=== PATIENT | female | born 1955 | race Caucasian/White ===

== ENCOUNTER 2017-05-23 08:17 | Day surgery (SDC) | payer BC ==
[~2017-05-23 08:17] MED LIST: Lactated Ringers 1,000 ML IV SCH; Sodium Chloride 0.9% 10 ML Syringe FLUSH PRN; Sodium Chloride 0.9% 2.5 ML Syringe FLUSH PRN
[2017-05-23] MEDS ORDERED: Propofol 200 MG/20 ML SDV ONE (09:29)
[2017-05-23] MEDS ORDERED: Lidocaine 2% 5 ML SDV ONE (09:31)
--- NOTE | 2017-05-23 09:33 | PCM.PREANE ---
Preanesthetic Assessment - Anesthesia/Transfusion/Family Hx Anesthesia History: No Prior Anesthesia Family History of Anesthesia Reaction: No Transfusion History: No Prior Transfusion(s) - Review of Systems General: No Symptoms Pulmonary: No Symptoms Cardiovascular: No Symptoms Gastrointestinal: No Symptoms Neurological: No Symptoms Other: Reports: None - Physical Assessment NPO Status Date: 05/22/17 NPO Status Time: 21:00 O2 Sat by Pulse Oximetry: 97 Respiratory Rate: 16 Vital Signs: Last Vital Signs Temp 36.5 C 05/23/17 08:33 Pulse 68 05/23/17 08:33 Resp 16 05/23/17 08:33 BP 171/73 H 05/23/17 08:33 Pulse Ox 97 05/23/17 08:33 Height: 1.65 m Weight: 107.048 kg ASA Class: 2 Mental Status: Alert & Oriented x3 Airway Class: Mallampati = 1 Dentition: Reports: Normal Dentition ROM/Head Extension: Full Lungs: Clear to Auscultation, Normal Respiratory Effort Cardiovascular: Regular Rate, Regular Rhythm - Allergies Allergies/Adverse Reactions: Allergies Allergy/AdvReac Type Severity Reaction Status Date / Time codeine Allergy Nausea and Verified 05/18/17 11:05 Vomiting - Anesthesia Plan Pre-Op Medication Ordered: None - Acknowledgements Anesthesia Type Planned: MAC Pt an Appropriate Candidate for the Planned Anesthesia: Yes Alternatives and Risks of Anesthesia Discussed w Pt/Guardian: Yes Pt/Guardian Understands and Agrees with Anesthesia Plan: Yes PreAnesthesia Questionnaire HEENT History: Reports: Other (See Below) Other HEENT History: wears glasses Cardiovascular History: Reports: High Cholesterol, Hypertension Genitourinary History: Reports: UTI, Recurrent [employer] 3RD SHIFT History: Reports: Musculoskeletal History: Reports: Arthritis Psychiatric History: Reports: Anxiety, Depression Endocrine/Metabolic History: Reports: Diabetes, Type II, Obesity/BMI 30+ - Past Surgical History Head Surgeries/Procedures: Reports: None GI Surgical History: Reports: Bariatric Procedure, Cholecystectomy Other GI Surgeries/Procedures: hx of laparoscopic gastric band placement Female Surgical History: Reports: Breast Biopsy, Cystectomy Other Female Surgeries/Procedures: hx laparotomy with ovarian cystectomy - SUBSTANCE USE Smoking Status *Q: Never Smoker Recreational Drug Use History: No - HOME MEDS Home Medications: Home Meds Insulin Aspart Protam & Aspart [Novolog Mix 70-30 Flexpen Syrn] 1 injection SUBCUT ASDIRECTED 05/18/17 [History] Losartan/Hydrochlorothiazide [Losartan-HCTZ 50-12.5 MG] 1 tab PO DAILY 05/18/17 [History] Rosuvastatin [Crestor] 10 mg PO BEDTIME 05/18/17 [History] Sertraline HCl 50 mg PO DAILY 05/18/17 [History] - CURRENT (IN HOUSE) MEDS Current Meds: Current Medications Lactated Ringer's (Ringers, Lactated) 1,000 mls @ 125 mls/hr IV ASDIRECTED MARYANN Last Admin: 05/23/17 08:35 Dose: 125 mls/hr Sodium Chloride (Saline Flush) 10 ml FLUSH ASDIRECTED PRN PRN Reason: Keep Vein Open Sodium Chloride (Saline Flush) 2.5 ml FLUSH ASDIRECTED PRN PRN Reason: Keep Vein Open Discontinued Medications Propofol (Diprivan 20 Ml) Confirm Administered Dose 400 mg .ROUTE .STK-MED ONE Stop: 05/23/17 09:30
--- NOTE | 2017-05-23 10:41 | PCM.OPNOTE ---
- General Post-Op/Procedure Note Date of Surgery/Procedure: 05/23/17 Operative Procedure(s): Colonoscopy Findings: Normal colon Pre Op Diagnosis: Screening colonoscopy Post-Op Diagnosis: same Anesthesia Technique: MAC Primary Surgeon: Rayne Carlson Condition: Good
[2017-05-23 11:13] VITALS: BP 127/60
--- NOTE | 2017-05-23 11:58 | PCM48HPAN ---
Post Anesthesia Note - EVALUATION WITHIN 48HRS OF ANESTHETIC Vital Signs in Normal Range: Yes Patient Participated in Evaluation: Yes Respiratory Function Stable: Yes Airway Patent: Yes Cardiovascular Function Stable: Yes Hydration Status Stable: Yes Pain Control Satisfactory: Yes Nausea and Vomiting Control Satisfactory: Yes Mental Status Recovered: Yes
--- NOTE | 2017-05-23 11:58 | PCM.POSTAN ---
POST ANESTHESIA ASSESSMENT - MENTAL STATUS Mental Status: Alert, Oriented - RESPIRATORY Respiratory Status: Respiratory Rate WNL, Airway Patent, O2 Saturation Stable - CARDIOVASCULAR CV Status: Pulse Rate WNL, Blood Pressure Stable - GASTROINTESTINAL GI Status: No Symptoms - POST OP HYDRATION Hydration Status: Adequate & Stable
--- NOTE | 2017-05-23 12:30 | OR ---
SURGEON: DARIUS VARELA MD DATE OF PROCEDURE: 05/23/2017 PREOPERATIVE DIAGNOSIS: Screening colonoscopy. POSTOPERATIVE DIAGNOSIS: Screening colonoscopy. PROCEDURE PERFORMED: Screening colonoscopy. ANESTHESIA: Monitored anesthesia care. INSTRUMENT USED: Olympus colonoscope. EXTENT OF EXAM: To the cecum. PREPARATION: Good. LIMITATIONS: None. INDICATIONS FOR EXAMINATION: The patient is a 62-year-old female, who presents for her first time screening colonoscopy. She has no family history of colon cancer or colon polyps. The patient and I discussed the procedure as well as expected perioperative course. We discussed the risks, including bleeding, infection, or damage to surrounding structures, including perforation. The patient verbalized understanding and wishes to proceed. PROCEDURE IN DETAIL: The patient was brought into the endoscopy suite and placed in a left lateral decubitus position. A time-out was completed verifying the patient's name, age, date of , allergies, and procedure to be performed. Monitored anesthesia care was induced and oxygen was provided via nasal cannula throughout the procedure. After adequate sedation was achieved, a digital rectal exam was performed. This examination was within normal limits. A well lubricated colonoscope was inserted into the rectum and advanced under direct visualization to the level of the cecum. The cecum was identified by both visual and anatomic landmarks. A photograph was taken of the cecal cap as well as with the scope retroflexed within the cecum. The scope was then straightened out and fully withdrawn while examining the color, texture, anatomy, and integrity of the mucosa from the cecum to the anal canal. Findings were consistent with normal colonic mucosa. The scope was brought into the rectum and retroflexed to allow visualization of the anal canal opening. This was normal and a photograph was taken. The scope was then straightened out and removed from the patient. The cecum to anus time was 10 minutes. The patient was taken to the PACU in stable condition. ENDOSCOPIC FINDINGS: Normal colonoscopy. RECOMMENDATIONS: Follow up in clinic in 10 years for a repeat screening colonoscopy. WILFRED MCMULLEN /[id number]
== END 2017-05-23 11:20 | disposition home or self-care (01) ==
LOC: MW.SDS 08:17
PROVIDERS: ATTEND Surgery
DX: Z12.11 Encounter for screening for malignant neoplasm of colon (principal); F41.9 Anxiety disorder, unspecified; E11.9 Type 2 diabetes mellitus without complications; I10 Essential (primary) hypertension; E78.00 Pure hypercholesterolemia, unspecified; M17.12 Unilateral primary osteoarthritis, left knee; F32.9 Major depressive disorder, single episode, unspecified; E66.9 Obesity, unspecified; Z88.5 Allergy status to narcotic agent; Z79.4 Long term (current) use of insulin; Z79.899 Other long term (current) drug therapy; Z98.84 Bariatric surgery status; Z98.890 Other specified postprocedural states; Z68.39 Body mass index [BMI] 39.0-39.9, adult; Z87.440 Personal history of urinary (tract) infections
CPT/HCPCS: 45378; J7120; J2704

== ENCOUNTER 2018-05-31 07:04 | Day surgery (SDC) | payer BC ==
[2018-05-31] MEDS ORDERED: Midazolam 1 MG/ML 2 ML SDV ONE (07:13)
[2018-05-31] MEDS ORDERED: fentaNYL 100 MCG/2 ML SDV ONE (07:13)
[2018-05-31] MEDS ORDERED: Propofol 200 MG/20 ML SDV ONE (07:13)
[2018-05-31] MEDS ORDERED: Lidocaine 2% 5 ML SDV ONE (07:13)
[2018-05-31] MEDS ORDERED: Dexamethasone/Tobramycin 0.1-0.3% Ophth Oint 3.5 GM Tube ONE (07:40)
[2018-05-31] MEDS ORDERED: Dexamethasone/Tobramycin 0.1-0.3% Ophth Susp 2.5 ML Bottle ONE (07:41)
[2018-05-31] MEDS ORDERED: Bupivacaine 0.25%/EPINEPHrine 1:200,000 10 ML SDV ONE (07:41)
[2018-05-31] MEDS ORDERED: Octyl 2-Cyanoacrylate 1 Tube ONE (07:41)
[2018-05-31] MEDS ORDERED: Tetracaine 0.5% Ophth Soln 15 ML Bottle ONE (07:41)
--- NOTE | 2018-05-31 07:51 | PCM.PREANE ---
Preanesthetic Assessment - Anesthesia/Transfusion/Family Hx Anesthesia History: No Prior Anesthesia Other Type of Anesthesia Reaction Comment: "hard time coming out of anesthesia after gastric banding" Family History of Anesthesia Reaction: No Transfusion History: No Prior Transfusion(s) Intubation History: Unknown - Review of Systems General: No Symptoms Pulmonary: No Symptoms Cardiovascular: No Symptoms Gastrointestinal: No Symptoms Neurological: No Symptoms Other: Reports: None - Physical Assessment Height: 1.65 m Weight: 107.955 kg ASA Class: 3 Mental Status: Alert & Oriented x3 Airway Class: Mallampati = 2 Dentition: Reports: Normal Dentition Thyro-Mental Finger Breadths: 3 Mouth Opening Finger Breadths: 3 ROM/Head Extension: Full Lungs: Clear to Auscultation, Normal Respiratory Effort Cardiovascular: Regular Rate, Regular Rhythm - Allergies Allergies/Adverse Reactions: Allergies Allergy/AdvReac Type Severity Reaction Status Date / Time codeine Allergy Nausea and Verified 05/28/18 08:37 Vomiting - Blood Blood Available: No - Anesthesia Plan Pre-Op Medication Ordered: None - Acknowledgements Anesthesia Type Planned: MAC Pt an Appropriate Candidate for the Planned Anesthesia: Yes Alternatives and Risks of Anesthesia Discussed w Pt/Guardian: Yes Pt/Guardian Understands and Agrees with Anesthesia Plan: Yes PreAnesthesia Questionnaire HEENT History: Reports: Other (See Below) Other HEENT History: wears glasses Cardiovascular History: Reports: High Cholesterol, Hypertension Gastrointestinal History: Reports: None Genitourinary History: Reports: UTI, Recurrent 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: Musculoskeletal History: Reports: Arthritis Psychiatric History: Reports: Anxiety Endocrine/Metabolic History: Reports: Diabetes, Type II, Obesity/BMI 30+ (BMI 39.6) - Past Surgical History Head Surgeries/Procedures: Reports: None GI Surgical History: Reports: Bariatric Procedure, Cholecystectomy, Colonoscopy Other GI Surgeries/Procedures: hx of laparoscopic gastric band placement Female Surgical History: Reports: Breast Biopsy, Cystectomy Other Female Surgeries/Procedures: hx laparotomy with ovarian cystectomy - SUBSTANCE USE Smoking Status *Q: Never Smoker Recreational Drug Use History: No - HOME MEDS Home Medications: Home Meds Insulin Aspart Protam & Aspart [Novolog Mix 70-30 Flexpen Syrn] 1 injection SUBCUT ASDIRECTED 05/18/17 [History] Rosuvastatin [Crestor] 10 mg PO DAILY 05/18/17 [History] Sertraline HCl 25 mg PO DAILY 05/18/17 [History] Losartan Potassium 50 mg PO DAILY 05/28/18 [History] - CURRENT (IN HOUSE) MEDS Current Meds: Current Medications Hydrocodone Bitart/Acetaminophen ([place] 325-5 Mg) 1 tab PO Q4H PRN PRN Reason: Pain Bupivacaine HCl/Epinephrine Bitart (Marcaine 0.25%/Epinephrine 1:200,000) 10 ml INJECT ONETIME ONE Stop: 05/31/18 08:01 Cefazolin Sodium/Dextrose 2 gm (/ Premix) 50 mls @ 100 mls/hr IV ONETIME ONE Stop: 05/31/18 08:29 Lactated Ringer's (Ringers, Lactated) 1,000 mls @ 125 mls/hr IV ASDIRECTED MARYANN Discontinued Medications Bupivacaine HCl/Epinephrine Bitart (Marcaine 0.25%/Epinephrine 1:200,000) Confirm Administered Dose 10 ml .ROUTE .STK-MED ONE Stop: 05/31/18 07:42 Fentanyl (Sublimaze) Confirm Administered Dose 100 mcg .ROUTE .STK-MED ONE Stop: 05/31/18 07:14 Lidocaine (Xylocaine-Mpf 2%) Confirm Administered Dose 5 ml .ROUTE .STK-MED ONE Stop: 05/31/18 07:14 Midazolam HCl (Versed 1 Mg/Ml) Confirm Administered Dose 2 mg .ROUTE .STK-MED ONE Stop: 05/31/18 07:14 Octyl Cyanoacrylate (Dermabond Advance) Confirm Administered Dose 1 applic .ROUTE .STK-MED ONE Stop: 05/31/18 07:42 Propofol (Diprivan 20 Ml) Confirm Administered Dose 200 mg .ROUTE .STK-MED ONE Stop: 05/31/18 07:14 Tetracaine (Tetracaine 0.5% Ophth Soln) Confirm Administered Dose 15 ml .ROUTE .STK-MED ONE Stop: 05/31/18 07:42 Tobramycin/Dexamethasone (Tobradex Ophth Oint) Confirm Administered Dose 3.5 gm .ROUTE .STK-MED ONE Stop: 05/31/18 07:41 Tobramycin/Dexamethasone (Tobradex Ophth Susp) Confirm Administered Dose 2.5 ml .ROUTE .STK-MED ONE Stop: 05/31/18 07:42
[2018-05-31] MEDS ORDERED: Lactated Ringers 1,000 ML IV SCH (08:00)
[2018-05-31] MEDS ORDERED: Bupivacaine 0.25%/EPINEPHrine 1:200,000 10 ML SDV INJECT ONE (08:00)
[2018-05-31] MEDS ORDERED: ceFAZolin 2 GM in Premix Bag 1 BAG IV ONE (08:00)
[2018-05-31] MEDS ORDERED: Acetaminophen/HYDROcodone 325-5 MG Tab PO PRN (08:00)
--- NOTE | 2018-05-31 09:49 | PCM48HPAN ---
Post Anesthesia Note - EVALUATION WITHIN 48HRS OF ANESTHETIC Vital Signs in Normal Range: Yes Patient Participated in Evaluation: Yes Respiratory Function Stable: Yes Airway Patent: Yes Cardiovascular Function Stable: Yes Hydration Status Stable: Yes Pain Control Satisfactory: Yes Nausea and Vomiting Control Satisfactory: Yes Mental Status Recovered: Yes Resp Rate: 16 - COMMENTS/OBSERVATIONS Free Text/Narrative:: No anesthesia problems. Patient skipped recovery room stage of postoperative care.
--- NOTE | 2018-05-31 10:40 | PCM.OPNOTE ---
- General Post-Op/Procedure Note Date of Surgery/Procedure: 05/31/18 Operative Procedure(s): bilateral upper lid blepharoplasties for excess skin Pre Op Diagnosis: dermatochalasis severe bilateral Post-Op Diagnosis: Same Anesthesia Technique: Local, MAC Primary Surgeon: Pilar Brandt Home Appliances Mechanic: Paulina Gipson Complications: None Condition: Good
[2018-05-31 13:13] VITALS: BP 143/61
--- NOTE | 2018-06-05 23:11 | OR ---
SURGEON: ARGELIA JAMES MD DATE OF PROCEDURE: 05/31/2018 PREOPERATIVE DIAGNOSIS: Bilateral upper lid dermatochalasis. POSTOPERATIVE DIAGNOSIS: Bilateral upper lid dermatochalasis. PROCEDURE: Bilateral upper lid blepharoplasties for excess skin. TRANSCRIPTION SPECIALIST: LUIS Duncan REASON FOR AND ROLE OF TRANSCRIPTION SPECIALIST: Retraction, prepping, draping, positioning and closure assistance. ANESTHESIA: Local MAC. INDICATIONS: Ms. Ramirez is a 63-year-old female, seen today in evaluation for bilateral upper lid dermatochalasis. Risks and benefits of upper lid blepharoplasties were discussed with her including, but not limited to, bleeding, infection, damage to underlying or overlying structures, possible need for future interventions, and possible scarring. PROCEDURE IN DETAIL: After informed consent was obtained and placed on the chart, the patient was brought to the operating theater and laid in supine position. After adequate local MAC anesthesia was obtained, the area was prepped and draped, and a time- out was completed to confirm side and site. After adequate markings, 0.25% Marcaine with epinephrine was injected in a field block and 1.3 cm of skin was marked for excision. Once adequately marked and anesthetized, the skin was excised using a #15 blade through the skin and Bovie electrocautery for meticulous hemostasis. Once adequately excised, the wounds on the upper eyelids were closed using a single deep 5-0 Monocryl stitch and a running 6-0 Prolene for the skin. The mirror procedure was completed on the opposite side and once both sides were completed, the 6-0 Prolenes were Steri- Stripped in place at the midline laterally. The patient tolerated this well. All counts and needles were correct at the end of the case. FOLLOWUP INSTRUCTIONS: The patient will see us in approximately 1 week; sooner if any problems, questions, or concerns. HEGGTHE / MODL /[id number]
== END 2018-05-31 10:50 | disposition home or self-care (01) ==
LOC: MW.SDS 07:04
PROVIDERS: ATTEND Plastic Surgery
DX: H02.834 Dermatochalasis of left upper eyelid (principal); H02.831 Dermatochalasis of right upper eyelid; I10 Essential (primary) hypertension; E11.9 Type 2 diabetes mellitus without complications; E66.9 Obesity, unspecified; Z68.39 Body mass index [BMI] 39.0-39.9, adult; E78.00 Pure hypercholesterolemia, unspecified; F41.9 Anxiety disorder, unspecified; Z79.4 Long term (current) use of insulin; Z79.899 Other long term (current) drug therapy; Z88.5 Allergy status to narcotic agent; Z88.8 Allergy status to other drugs, medicaments and biological substances
CPT/HCPCS: 15823; J2250; J2704; J3010; J3490; 00103; A9270-GY

== ENCOUNTER 2024-04-24 14:41 | Emergency (ER) | payer MEDICARE, OTHER ==
[2024-04-24 16:07] LABS: BASOPHILS ABSOLUTE AUTO 0.03 K/uL (0.00-0.20); BASOPHILS PERCENT AUTO 0.2 % (0.0-1.0); EOSINOPHILS ABSOLUTE AUTO 0.08 K/uL (0.00-0.45); EOSINOPHILS PERCENT AUTO 0.7 % (0.0-6.0); HEMATOCRIT 42.2 % (37.0-47.0); IMMATURE GRAN ABSOLUTE AUTO 0.04 K/uL (0.00-0.05); IMMATURE GRAN PERCENT AUTO 0.3 % (0.0-0.4); LYMPHOCYTES ABSOLUTE AUTO 2.15 K/uL (1.00-4.80); LYMPHOCYTES PERCENT AUTO 17.7 % (24.0-44.0); MEAN CORPUSCULAR HEMOGLOBIN 29.5 pg (28.0-32.0); MEAN CORPUSCULAR HGB CONC 35.5 g/dL (32.0-36.0); MEAN CORPUSCULAR VOLUME 83.1 fL (83.0-99.0); MEAN PLATELET VOLUME 9.1 fL (9.4-12.3); MONOCYTES PERCENT AUTO 4.1 % (0.0-8.0); NEUTROPHILS ABSOLUTE AUTO 9.32 K/uL (1.80-7.70); PLATELET COUNT,PLT 247 K/uL (150-400); RED BLOOD CELL COUNT 5.08 M/uL (4.10-5.30); WHITE BLOOD CELL COUNT,WBC 12.12 K/uL (3.9-11.3)
[2024-04-24 16:32] LABS: A/G RATIO 1.4 (0.9-1.6); ALBUMIN 4.4 g/dL (3.4-5.0); BILIRUBIN TOTAL 0.8 mg/dL (0.2-1.0); CALCIUM 10.3 mg/dL (8.5-10.1); CREATININE 0.9 mg/dL (0.6-1.0); EST CRCL DRUG DOSING (CG) 52.34 mL/min; PROTEIN TOTAL,TP 7.6 g/dL (6.4-8.2)
[2024-04-24 16:37] LABS: MAGNESIUM 1.3 mg/dL (1.8-2.4)
[2024-04-24] MEDS: Sodium Chloride 0.9% 1,000 ML IV ONE (16:49)
[2024-04-24] MEDS: Sodium Chloride 0.9% 500 ML IV ONE (16:51)
[2024-04-24 16:59] LABS: APPEARANCE,URINE CLOUDY; BILIRUBIN,URINE NEGATIVE (NEGATIVE); GLUCOSE,URINE NEGATIVE (NEGATIVE); KETONES,URINE NEGATIVE (NEGATIVE); LEUKOCYTE ESTERASE,URINE NEGATIVE (NEGATIVE); NITRITE,URINE NEGATIVE (NEGATIVE); OCCULT BLOOD,URINE NEGATIVE (NEGATIVE); PROTEIN,URINE NEGATIVE (NEGATIVE)
[2024-04-24 17:00] LABS: COLOR,URINE DARK YELLOW
[2024-04-24] MEDS ORDERED: Potassium Chloride 10% 20 MEQ/15 ML Soln 15 ML UD Cup PO ONE (17:15)
[2024-04-24 18:42] VITALS: BP 133/66; PULSE 65
== END 2024-04-24 18:42 | disposition home or self-care (01) ==
LOC: MW.ED 14:41
DX: S93.492A Sprain of other ligament of left ankle, initial encounter (principal); R55 Syncope and collapse; M79.672 Pain in left foot; R10.84 Generalized abdominal pain; E87.6 Hypokalemia; E11.9 Type 2 diabetes mellitus without complications; E66.9 Obesity, unspecified; E78.00 Pure hypercholesterolemia, unspecified; I10 Essential (primary) hypertension; Z79.899 Other long term (current) drug therapy; Z88.5 Allergy status to narcotic agent; W19.XXXA Unspecified fall, initial encounter; Z75.8 Other problems related to medical facilities and other health care
CPT/HCPCS: 36415; 71046; 73610; 73620; 80053; 81003; 83735; 83880; 84484; 85025; 93005; 96360; 99284; J7030; 93010; 99283

== ENCOUNTER 2024-04-25 10:48 | Observation (INO) | payer MEDICARE, OTHER ==
[2024-04-25] MEDS ORDERED: Sodium Chloride 0.9% 10 ML Syringe FLUSH PRN (10:52)
[2024-04-25] MEDS ORDERED: Sodium Chloride 0.9% 20 ML SDV IV PRN (10:52)
[2024-04-25] MEDS ORDERED: Sodium Chloride 0.9% 2.5 ML Syringe FLUSH PRN (10:52)
[2024-04-25 12:13] LABS: BASOPHILS ABSOLUTE AUTO 0.03 K/uL (0.00-0.20); BASOPHILS PERCENT AUTO 0.3 % (0.0-1.0); EOSINOPHILS ABSOLUTE AUTO 0.11 K/uL (0.00-0.45); EOSINOPHILS PERCENT AUTO 1.1 % (0.0-6.0); HEMATOCRIT 40.8 % (37.0-47.0); HEMOGLOBIN 14.6 g/dL (12.0-16.0); IMMATURE GRAN ABSOLUTE AUTO 0.03 K/uL (0.00-0.05); IMMATURE GRAN PERCENT AUTO 0.3 % (0.0-0.4); LYMPHOCYTES ABSOLUTE AUTO 2.05 K/uL (1.00-4.80); LYMPHOCYTES PERCENT AUTO 20.5 % (24.0-44.0); MEAN CORPUSCULAR HEMOGLOBIN 29.1 pg (28.0-32.0); MEAN CORPUSCULAR HGB CONC 35.8 g/dL (32.0-36.0); MEAN CORPUSCULAR VOLUME 81.3 fL (83.0-99.0); MEAN PLATELET VOLUME 9.1 fL (9.4-12.3); NEUTROPHILS ABSOLUTE AUTO 7.27 K/uL (1.80-7.70); NEUTROPHILS PERCENT AUTO 72.8 % (41.0-71.0); PLATELET COUNT,PLT 238 K/uL (150-400); RED BLOOD CELL COUNT 5.02 M/uL (4.10-5.30); WHITE BLOOD CELL COUNT,WBC 9.99 K/uL (3.9-11.3)
[2024-04-25] MEDS: Pantoprazole 80 MG in Sodium Chloride 0.9% 10 ML IVPUSH ONE (12:16)
[2024-04-25 12:22] LABS: INR 1.06 (0.86-1.11)
[2024-04-25 12:36] LABS: A/G RATIO 1.2 (0.9-1.6); ALBUMIN 3.7 g/dL (3.4-5.0); CALCIUM 9.6 mg/dL (8.5-10.1); CARBON DIOXIDE,CO2 26.9 mmol/L (21.0-32.0); CREATININE 0.7 mg/dL (0.6-1.0); EST CRCL DRUG DOSING (CG) 67.29 mL/min; POTASSIUM,K 2.9 mmol/L (3.5-5.1); PROTEIN TOTAL,TP 6.9 g/dL (6.4-8.2)
[2024-04-25] MEDS: Ondansetron 4 MG/2 ML SDV IVPUSH ONE (13:53)
[2024-04-25] MEDS: Iopamidol 755 MG/ML 500 ML Multipack Bottle IVPUSH STA (14:26)
[2024-04-25 14:51] LABS: HEMATOCRIT 38.2 % (37.0-47.0); HEMOGLOBIN 13.7 g/dL (12.0-16.0)
[2024-04-25] MEDS ORDERED: Morphine 4 MG/ML Syringe IVPUSH PRN (15:05)
[2024-04-25] MEDS: Sodium Chloride 0.9% 1,000 ML IV ONE (15:15)
[2024-04-25] MEDS: metroNIDAZOLE/Normal Saline 500 MG in Premix Bag 1 BAG IV ONE (17:50)
[2024-04-25] MEDS ORDERED: Ondansetron 4 MG/2 ML SDV IVPUSH PRN (18:30)
[2024-04-25] MEDS ORDERED: Acetaminophen 325 MG Tab PO PRN (18:30)
[2024-04-25] MEDS ORDERED: Melatonin 3 MG Tab PO PRN (18:30)
[2024-04-25] MEDS: Ciprofloxacin in D5W 400 MG in Premix Bag 1 BAG IV SCH (18:53)
[2024-04-25] MEDS ORDERED: 50% Dextrose in Water 50 ML Syringe IVPUSH PRN (19:20)
[2024-04-25] MEDS ORDERED: Glucagon,Human Recombinant 1 MG Vial IM PRN (19:20)
[2024-04-25] MEDS: Sodium Chloride 0.9% 1,000 ML IV SCH (19:21)
[2024-04-25] MEDS: Piperacillin/Tazobactam 3.375 GM in Sodium Chloride 0.9% 100 ML IV SCH ×2 (19:24→19:27)
[2024-04-25] MEDS: Potassium Chloride 20 MEQ Tab.ER PO ONE (19:27)
[2024-04-25] MEDS: Potassium Chloride 20 MEQ in Premix Bag 1 BAG IV SCH (19:27)
[2024-04-25] MEDS: Potassium Chloride 10 MEQ in Premix Bag 1 BAG IV SCH (20:07)
[2024-04-25] MEDS: Piperacillin/Tazobactam 4.5 GM in Sodium Chloride 0.9% 100 ML IV SCH ×2 (22:22→23:58)
[2024-04-26] MEDS: Insulin Aspart 100 Units/ML 3 ML Pen SUBCUT SCH (06:36)
[2024-04-26 06:37] LABS: BASOPHILS ABSOLUTE AUTO 0.02 K/uL (0.00-0.20); BASOPHILS PERCENT AUTO 0.3 % (0.0-1.0); EOSINOPHILS ABSOLUTE AUTO 0.17 K/uL (0.00-0.45); EOSINOPHILS PERCENT AUTO 2.7 % (0.0-6.0); HEMATOCRIT 33.2 % (37.0-47.0); HEMOGLOBIN 11.8 g/dL (12.0-16.0); IMMATURE GRAN ABSOLUTE AUTO 0.01 K/uL (0.00-0.05); IMMATURE GRAN PERCENT AUTO 0.2 % (0.0-0.4); LYMPHOCYTES ABSOLUTE AUTO 2.09 K/uL (1.00-4.80); LYMPHOCYTES PERCENT AUTO 32.7 % (24.0-44.0); MEAN CORPUSCULAR HEMOGLOBIN 29.4 pg (28.0-32.0); MEAN CORPUSCULAR HGB CONC 35.5 g/dL (32.0-36.0); MEAN CORPUSCULAR VOLUME 82.6 fL (83.0-99.0); MEAN PLATELET VOLUME 9.1 fL (9.4-12.3); MONOCYTES ABSOLUTE AUTO 0.39 K/uL (0.00-0.80); MONOCYTES PERCENT AUTO 6.1 % (0.0-8.0); NEUTROPHILS ABSOLUTE AUTO 3.71 K/uL (1.80-7.70); PLATELET COUNT,PLT 168 K/uL (150-400); RED BLOOD CELL COUNT 4.02 M/uL (4.10-5.30); WHITE BLOOD CELL COUNT,WBC 6.39 K/uL (3.9-11.3)
[2024-04-26 07:03] LABS: ALBUMIN 2.8 g/dL (3.4-5.0); BILIRUBIN TOTAL 0.9 mg/dL (0.2-1.0); CALCIUM 8.5 mg/dL (8.5-10.1); CARBON DIOXIDE,CO2 27.9 mmol/L (21.0-32.0); CREATININE 0.8 mg/dL (0.6-1.0); EST CRCL DRUG DOSING (CG) 58.88 mL/min; POTASSIUM,K 2.8 mmol/L (3.5-5.1); PROTEIN TOTAL,TP 5.5 g/dL (6.4-8.2)
[2024-04-26] MEDS: Pantoprazole 40 MG in Sodium Chloride 0.9% 10 ML IVPUSH SCH (08:04)
[2024-04-26] MEDS: Chlorthalidone 25 MG Tab PO SCH (08:04)
[2024-04-26] MEDS: Losartan 50 MG Tab PO SCH (08:04)
[2024-04-26] MEDS: Rosuvastatin 10 MG Tab PO SCH (08:04)
[2024-04-26] MEDS: Potassium Chloride 100 ML IV SCH (09:36)
[2024-04-26 12:31] VITALS: PULSE 72
[2024-04-26] MEDS: Potassium Chloride 20 MEQ Tab.ER PO SCH ×2 (12:52→13:13)
[2024-04-26] MEDS: Magnesium Sulfate/Water 2 GM in Premix Bag 1 BAG IV ONE (13:21)
[2024-04-26] MEDS ORDERED: Magnesium Oxide 400 MG Tab PO ONE (16:23)
[2024-04-26 16:34] VITALS: BP 137/65
== END 2024-04-26 17:00 | disposition home or self-care (01) ==
LOC: MW.ED 10:48 → MW.MS 17:22
PROVIDERS: ADMIT Family Medicine; ATTEND Family Medicine
DX: K52.9 Noninfective gastroenteritis and colitis, unspecified (principal); K92.2 Gastrointestinal hemorrhage, unspecified; E11.9 Type 2 diabetes mellitus without complications; I10 Essential (primary) hypertension; E78.5 Hyperlipidemia, unspecified; E86.0 Dehydration; R55 Syncope and collapse; E66.9 Obesity, unspecified; E87.8 Other disorders of electrolyte and fluid balance, not elsewhere classified; Z79.899 Other long term (current) drug therapy; Z88.5 Allergy status to narcotic agent
CPT/HCPCS: 36415; 74177; 80053; 82947; 83605; 83690; 83735; 85014; 85018; 85025; 85610; 85652; 86140; 86850; 86900; 86901; 96361; 96365; 96366; 96367; 96368; 96375; 96376; 99285; A9270; G0378; J0744; J1836; J2405; J2470; J2543; J3475; J3480; J3490; J7030; Q9967; 99284

== ENCOUNTER 2024-04-29 08:22 | Emergency (ER) | payer MEDICARE, OTHER ==
[2024-04-29] MEDS ORDERED: Sodium Chloride 0.9% 10 ML Syringe FLUSH PRN (08:35)
[2024-04-29] MEDS ORDERED: Sodium Chloride 0.9% 2.5 ML Syringe FLUSH PRN (08:35)
[2024-04-29] MEDS: Sodium Chloride 0.9% 1,000 ML IV ONE (08:48)
[2024-04-29] MEDS: Ondansetron 4 MG/2 ML SDV IVPUSH ONE (08:48)
[2024-04-29 08:49] LABS: BASOPHILS ABSOLUTE AUTO 0.03 K/uL (0.00-0.20); BASOPHILS PERCENT AUTO 0.4 % (0.0-1.0); EOSINOPHILS ABSOLUTE AUTO 0.17 K/uL (0.00-0.45); EOSINOPHILS PERCENT AUTO 2.5 % (0.0-6.0); HEMATOCRIT 40.2 % (37.0-47.0); HEMOGLOBIN 14.6 g/dL (12.0-16.0); IMMATURE GRAN ABSOLUTE AUTO 0.02 K/uL (0.00-0.05); IMMATURE GRAN PERCENT AUTO 0.3 % (0.0-0.4); LYMPHOCYTES ABSOLUTE AUTO 2.15 K/uL (1.00-4.80); LYMPHOCYTES PERCENT AUTO 31.1 % (24.0-44.0); MEAN CORPUSCULAR HEMOGLOBIN 29.7 pg (28.0-32.0); MEAN CORPUSCULAR HGB CONC 36.3 g/dL (32.0-36.0); MEAN CORPUSCULAR VOLUME 81.7 fL (83.0-99.0); MONOCYTES ABSOLUTE AUTO 0.46 K/uL (0.00-0.80); MONOCYTES PERCENT AUTO 6.7 % (0.0-8.0); NEUTROPHILS ABSOLUTE AUTO 4.08 K/uL (1.80-7.70); PLATELET COUNT,PLT 240 K/uL (150-400); RED BLOOD CELL COUNT 4.92 M/uL (4.10-5.30); WHITE BLOOD CELL COUNT,WBC 6.91 K/uL (3.9-11.3)
[2024-04-29 09:15] LABS: A/G RATIO 1.2 (0.9-1.6); BILIRUBIN TOTAL 0.6 mg/dL (0.2-1.0); CALCIUM 10.2 mg/dL (8.5-10.1); CARBON DIOXIDE,CO2 27.1 mmol/L (21.0-32.0); CREATININE 0.9 mg/dL (0.6-1.0); EST CRCL DRUG DOSING (CG) 52.34 mL/min; PROTEIN TOTAL,TP 7.4 g/dL (6.4-8.2)
[2024-04-29] MEDS: Iopamidol 755 MG/ML 500 ML Multipack Bottle IVPUSH STA (09:36)
[2024-04-29] MEDS: Potassium Chloride 20 MEQ Tab.ER PO ONE (10:12)
[2024-04-29 10:54] VITALS: BP 134/71; PULSE 66
== END 2024-04-29 10:58 | disposition home or self-care (01) ==
LOC: MW.ED 08:22
DX: N88.2 Stricture and stenosis of cervix uteri (principal); R11.0 Nausea; I10 Essential (primary) hypertension; E78.00 Pure hypercholesterolemia, unspecified; E11.9 Type 2 diabetes mellitus without complications; E66.9 Obesity, unspecified; Z90.49 Acquired absence of other specified parts of digestive tract; Z79.899 Other long term (current) drug therapy; Z88.5 Allergy status to narcotic agent; Z88.8 Allergy status to other drugs, medicaments and biological substances; Z75.8 Other problems related to medical facilities and other health care; Z68.31 Body mass index [BMI] 31.0-31.9, adult; Z79.84 Long term (current) use of oral hypoglycemic drugs
CPT/HCPCS: 36415; 74177; 80053; 83605; 83690; 85025; 93005; 96374; 99284; A9270; J2405; J7030; Q9967; 93010

== ENCOUNTER 2024-07-08 21:15 | Emergency (ER) | payer MEDICARE, OTHER ==
[2024-07-08 21:52] LABS: BASOPHILS ABSOLUTE AUTO 0.02 K/uL (0.00-0.20); BASOPHILS PERCENT AUTO 0.3 % (0.0-1.0); EOSINOPHILS ABSOLUTE AUTO 0.11 K/uL (0.00-0.45); EOSINOPHILS PERCENT AUTO 1.9 % (0.0-6.0); HEMATOCRIT 37.3 % (37.0-47.0); HEMOGLOBIN 12.9 g/dL (12.0-16.0); IMMATURE GRAN ABSOLUTE AUTO 0.01 K/uL (0.00-0.05); IMMATURE GRAN PERCENT AUTO 0.2 % (0.0-0.4); LYMPHOCYTES ABSOLUTE AUTO 2.73 K/uL (1.00-4.80); LYMPHOCYTES PERCENT AUTO 47.5 % (24.0-44.0); MEAN CORPUSCULAR HEMOGLOBIN 28.9 pg (28.0-32.0); MEAN CORPUSCULAR HGB CONC 34.6 g/dL (32.0-36.0); MEAN CORPUSCULAR VOLUME 83.6 fL (83.0-99.0); MEAN PLATELET VOLUME 9.1 fL (9.4-12.3); MONOCYTES PERCENT AUTO 5.2 % (0.0-8.0); NEUTROPHILS ABSOLUTE AUTO 2.58 K/uL (1.80-7.70); NEUTROPHILS PERCENT AUTO 44.9 % (41.0-71.0); PLATELET COUNT,PLT 246 K/uL (150-400); RED BLOOD CELL COUNT 4.46 M/uL (4.10-5.30); WHITE BLOOD CELL COUNT,WBC 5.75 K/uL (3.9-11.3)
[2024-07-08 22:23] LABS: A/G RATIO 1.3 (0.9-1.6); ALANINE AMINOTRANSFERASE,ALT 32 IU/L (14-63); ALBUMIN 3.9 g/dL (3.4-5.0); ALKALINE PHOSPHATASE 76 U/L (46-116); ASPARTATE AMNIOTRANSFERASE,AST 23 IU/L (15-37); BILIRUBIN TOTAL 0.3 mg/dL (0.2-1.0); BLOOD UREA NITROGEN,BUN 25 mg/dL (7.0-18.0); CALCIUM 9.7 mg/dL (8.5-10.1); CARBON DIOXIDE,CO2 26.7 mmol/L (21.0-32.0); CHLORIDE,CL 104 mmol/L (98-107); CREATININE 0.9 mg/dL (0.6-1.0); GLUCOSE RANDOM 166 mg/dL (74-106); LIPASE 46 U/L (16-77); MAGNESIUM 1.3 mg/dL (1.8-2.4); POTASSIUM,K 2.8 mmol/L (3.5-5.1); PRO B-TYPE NATRIUR PEPT,BNPPRO 308 pg/mL (0-125); PROTEIN TOTAL,TP 6.9 g/dL (6.4-8.2); SODIUM,NA 141 mmol/L (136-145)
[2024-07-08 22:24] LABS: ESTIMATED GFR 69 mL/min (>60)
[2024-07-08 23:33] LABS: CORONAVIRUS COVID-19 NAA NEGATIVE (NEGATIVE); INFLUENZA A NAA NEGATIVE (NEGATIVE); INFLUENZA B NAA NEGATIVE (NEGATIVE)
[2024-07-08 23:39] LABS: APPEARANCE,URINE CLEAR; BILIRUBIN,URINE NEGATIVE (NEGATIVE); COLOR,URINE YELLOW; GLUCOSE,URINE NEGATIVE (NEGATIVE); KETONES,URINE NEGATIVE (NEGATIVE); LEUKOCYTE ESTERASE,URINE TRACE (NEGATIVE); NITRITE,URINE NEGATIVE (NEGATIVE); OCCULT BLOOD,URINE TRACE-INTACT (NEGATIVE); PROTEIN,URINE NEGATIVE (NEGATIVE); UROBILINOGEN,URINE 0.2 EU/dL (<2.0)
[2024-07-08] MEDS ORDERED: Magnesium Sulfate/Water Premix 2 GM in Premix Bag 1 BAG IV ONE (23:39)
[2024-07-08 23:49] LABS: AMPHETAMINES SCREEN, URINE NEGATIVE (CUTOFF=500); BACTERIA,URINE RARE (NEGATIVE); BARBITURATE SCREEN,URINE NEGATIVE (CUTOFF=200); BENZODIAZEPINES SCREEN,URINE PRESUMPTIVE POSITIVE (CUTOFF=150); BUPRENORPHINE SCREEN,URINE NEGATIVE (CUTOFF=10); EPITHELIAL CELLS,URINE RARE (NONE-FEW); METHADONE SCREEN, URINE NEGATIVE (CUTOFF=200); METHAMPHETAMINES SCREEN, URINE NEGATIVE (CUTOFF=500); OXYCODONE SCREEN,URINE NEGATIVE (CUT0FF=100); PCP SCREEN,URINE NEGATIVE (CUTOFF=25); RBC,URINE 0-1 (0-2/HPF); THC SCREEN,URINE 20 NG/ML NEGATIVE (CUTOFF=50)
[2024-07-09] MEDS: Magnesium Oxide 400 MG Tab PO ONE (00:21)
[2024-07-09] MEDS: Potassium Chloride 20 MEQ Tab.ER PO ONE (00:21)
[2024-07-09] MEDS ORDERED: Albuterol 0.083% 2.5 MG/3 ML Neb Soln NEB STA (00:34)
[2024-07-09 01:44] VITALS: BP 145/60; PULSE 60
== END 2024-07-09 01:45 | disposition home or self-care (01) ==
LOC: MW.ED 21:15
DX: R55 Syncope and collapse (principal); E87.6 Hypokalemia; E83.42 Hypomagnesemia; R82.5 Elevated urine levels of drugs, medicaments and biological substances; I10 Essential (primary) hypertension; E78.00 Pure hypercholesterolemia, unspecified; E66.9 Obesity, unspecified; E11.9 Type 2 diabetes mellitus without complications; Z68.31 Body mass index [BMI] 31.0-31.9, adult; Z88.8 Allergy status to other drugs, medicaments and biological substances; Z79.899 Other long term (current) drug therapy; Z90.49 Acquired absence of other specified parts of digestive tract
CPT/HCPCS: 0240U; 36415; 71045; 80053; 80305; 81001; 83690; 83735; 83880; 84484; 85025; 93005; 99284; A9270; 93010; 99283

== ENCOUNTER 2024-08-14 08:26 | Day surgery (SDC) | payer MEDICARE, OTHER ==
[~2024-08-14 08:26] MED LIST changes: -Lactated Ringers 1,000 ML IV SCH; +Sodium Chloride 0.9% 20 ML SDV IV PRN
[2024-08-14] MEDS: Lactated Ringers 1,000 ML IV SCH (08:54)
[2024-08-14] MEDS ORDERED: propofoL 500 MG/50 ML 50 ML ONE (09:25)
[2024-08-14] MEDS ORDERED: Magnesium Sulfate (4.06 MEQ/ML) 5 GM/10 ML SDV ONE (10:00)
[2024-08-14 10:59] VITALS: BP 133/56; PULSE 58
== END 2024-08-14 11:10 ==
LOC: MW.SDS 08:26
PROVIDERS: ATTEND Surgery
DX: K57.32 Diverticulitis of large intestine without perforation or abscess without bleeding (principal); I10 Essential (primary) hypertension; E11.9 Type 2 diabetes mellitus without complications; E78.00 Pure hypercholesterolemia, unspecified; F41.9 Anxiety disorder, unspecified; Z79.4 Long term (current) use of insulin; Z79.899 Other long term (current) drug therapy; Z88.5 Allergy status to narcotic agent; Z88.8 Allergy status to other drugs, medicaments and biological substances
CPT/HCPCS: 45378; 82947; J2704; J7120